=== PATIENT | female | born 1975 | race Caucasian/White ===

== ENCOUNTER 2017-07-08 12:50 | Outpatient (CLI) | payer BC ==
--- NOTE | 2017-07-08 15:28 | RAD ---
THREE VIEWS LUMBAR SPINE: Indication: Low back pain. FINDINGS: The vertebral body heights and disc spaces are fairly well preserved. No abnormal translation motion is evident. IMPRESSION: No abnormal translational motion. POS: [facility]
--- NOTE | 2017-07-08 16:28 | MRI ---
EXAM: MRI LUMBAR SPINE WITHOUT CONTRAST 07/08/17 HISTORY: Chronic low back radiating down the right leg x15 years. Symptoms have progressively worsened. COMPARISON: None. TECHNIQUE: Lumbar spine MRI is performed without intravenous gadolinium administration. Multisequential, multip lanar imaging is performed. FINDINGS: There is symmetric signal intensity of the psoas muscles. There is appropriate signal intensity in t he visualized solid organs. The conus medullaris terminates at the inferior end plate of T12. There is appropriate T1 marrow signal intensity of the lumbar vertebrae. Lumbar spine vertebral body heigh t is maintained. No fracture. No significant STIR hyperintensity to suggest vertebral body edema or ligamentous injury. T12-L1: Adequate disc hydration. No significant central canal stenosis or foraminal narrowing. L1-L2: Adequate disc hydration. No significant central canal stenosis or foraminal narrowing. L2-L3: Adequate disc hydration. No significant central canal stenosis, Neural foramina are patent. L3-L4: Adequate disc hydration. Minimal ligamentum flavum thickening and facet hypertrophy. No signi ficant central canal stenosis. Neural foramina are patent. L4-L5: Adequate disc hydration. No significant central canal stenosis. Neural foramina are patent. L5-S1: Adequate disc hydration. No significant central canal stenosis. Neural foramina are patent. IMPRESSION: No significant central canal stenosis or neural foraminal narrowing. POS: [facility]
== END 2017-07-08 12:51 | disposition home or self-care (01) ==
LOC: TBSIIMAG 12:50
PROVIDERS: ATTEND Neurological Surgery
DX: M54.16 Radiculopathy, lumbar region (principal)
CPT/HCPCS: 72100; 72148

== ENCOUNTER 2019-05-27 19:07 | Emergency (ER) | payer BC ==
[~2019-05-27 19:07] MED LIST: Gadobenate Dimeglumine 529 MG/1 ML (20ML VIAL) ONE
--- NOTE | 2019-05-27 22:24 | MRI ---
MRI LUMBAR SPINE WITH AND WITHOUT CONTRAST: DATE: 05/27/2019 HISTORY: 43 year old female with recent lumbar steroid injection 8 days ago presents with low back pain and hy pesthesia (numbness) of right side of body. Rule out epidural abscess. COMPARISON: 07/08/2017 noncontrast MRI. TECHNIQUE: Multiple sequences obtained in axial and sagittal planes, pre and post IV injection of gadolinium-bas ed contrast agent. FINDINGS: There is no epidural abscess. No edema or abscess in the retroperitoneum or perivertebral space. Bone marrow signal is normal. No evidence of abnormal enhancement involving intradural, extradural, intraosseous, or perivertebral, spaces. Conus medullaris terminates at L1. Cauda equina is arranged i n a symmetrical, normal distribution throughout the cul-de-sac. Alignment is normal. There has been interval development of degenerative disc disease at L4-5, where there is now mild dis c space narrowing, disc desiccation, and a central and bilateral paracentral focal disc herniation which indents the thecal sac, and contacts the bilateral L5 nerve roots, especially the right L5 nerv e root, causing mild central spinal canal stenosis and mild thecal sac stenosis, with right lateral recess stenosis. No high-grade neural foraminal stenosis. All other levels are normal. No high-grade facet DJD at any level. IMPRESSION: 1. No epidural abscess, osteomyelitis-discitis, or any other infectious spondylitis. 2. Interval development of degenerative disc disease at L4-5, where there is a disc herniation which contacts the bilateral L5 nerve roots, especially the right L5 nerve root. 3. The rest of the lumbar spine is normal.
== END 2019-05-27 22:45 | disposition home or self-care (01) ==
LOC: ERS 19:07
DX: R20.0 Anesthesia of skin (principal); D72.829 Elevated white blood cell count, unspecified
CPT/HCPCS: 72158; A9577

== ENCOUNTER 2019-06-15 07:39 | Outpatient (CLI) | payer BC ==
--- NOTE | 2019-06-15 09:43 | MRI ---
MRI CERVICAL SPINE WITHOUT CONTRAST: INDICATIONS: Cervical radiculopathy located within the right upper extremity. COMPARISON: Reference made to 09/06/2014 exam. FINDINGS: Operative susceptibility from ACDF obscures the C5 through C7 segments. Mild degenerative hypertroph y at the C1-C2 level is present with slight effacement of the ventral thecal sac. C2-C3: No significant central canal or foraminal stenosis. C3-C4: Right asymmetric uncinate process hypertrophy with mild narrowing of the right neural foramen . No significant central canal or left foraminal stenosis. C4-C5: There is a broad-based slightly right asymmetric disk osteophyte without significant central canal stenosis. There is mild narrowing of the bilateral neural foramina. C5-C6: This level is partially obscured by susceptibility artifact. Right asymmetric osteophyte for mation produces mild narrowing of the right subarticular zone and crowding of the right C6 nerve root . There is mild to moderate right and mild left neural foraminal stenosis. C6-C7: Right asymmetric osteophyte results in mild narrowing of the right aspect of the thecal sac. This does crowd the right C7 nerve root and produces mild to moderate right and mild left neural for aminal narrowing. C7-T1: There is a small protrusion at the medial aspect of right foraminal zone with abutment of the right C8 nerve root and mild focal narrowing at the medial aspect of the right neural foramen. No h igh grade central canal stenosis or significant left foraminal compromise. No intrinsic intramedullary signal abnormality of significance is identified. No expansile process o f the cervical spinal cord. No acute marrow edema. IMPRESSION: Postoperative cervical spine. There are multilevel degenerative changes, which result in predominant ly effacement of the neural foramina and the nerve roots, right greater than left, as delineated zakia good. POS: [facility]
== END 2019-06-15 07:40 | disposition home or self-care (01) ==
LOC: TBSIIMAG 07:39
PROVIDERS: ATTEND Anesthesiology
DX: M47.22 Other spondylosis with radiculopathy, cervical region (principal); Z98.890 Other specified postprocedural states
CPT/HCPCS: 72141